=== PATIENT | female | born 1960 | race African-American/Black ===

== ENCOUNTER 2018-12-26 10:40 | Emergency (ER) | payer OTHER ==
[~2018-12-26] VITALS: Ht 180.3 cm; Wt 132.9 kg
[~2018-12-26 10:40] MED LIST: ALLOPURINOL 10100 M1 PO; BACTRIM DS TAB1 EACH PO; CLONIDINE0.1 PO; FLEXERIL PO; FLONASE 0.05%50 MCG NASAL; HYDROCHLOROTHIA50 MG PO; HYDROCODON-ACE1 EAC2 PO; IBUPROFEN 600600 M1 PO; INDOMETHACIN 2525 MG PO; LISINOPRIL20 MG PO; MACROBID 100 M100 M1 PO; NORCO 5-325 TA1 EACH PO; NORVASC 2.5 MG2.5 M1 PO; PERCOCET 5-3251 EACH PO; PREDNISONE 10 M10 M1 PO; PREDNISONE 20 M20 MG PO; PRINIVIL20 MG PO; PYRIDIUM200 MG PO; ZOLOFT 50 MG TA50 M1
[2018-12-26] MEDS ORDERED: OXYCONTIN20 M1 PO (11:10)
[2018-12-26 11:41] LABS: CALCIUM 9.2 mg/dL (8.5-10.1); CREATININE 1.1 mg/dL (0.6-1.0); POTASSIUM 4.5 mmol/L (3.5-5.1)
[2018-12-26 11:45] LABS: URIC ACID* 8.4 mg/dL (2.6-7.2)
[2018-12-26] MEDS ORDERED: NORCO 5-325 TA1 EAC1 PO (11:55)
[2018-12-26] MEDS ORDERED: NORFLEX100 MG PO (11:55)
[2018-12-26] MEDS ORDERED: COLCHICINE0.6 MG PO (11:55)
[2018-12-26 12:15] VITALS: BP 166/76
== END 2018-12-26 12:16 | disposition home or self-care (01) ==
LOC: ER 10:40
PROVIDERS: Physician Assistant
DX: M76.32 Iliotibial band syndrome, left leg (principal); M10.9 Gout, unspecified; I10 Essential (primary) hypertension; M06.9 Rheumatoid arthritis, unspecified; Z86.2 Personal history of diseases of the blood and blood-forming organs and certain disorders involving the immune mechanism

== ENCOUNTER 2020-08-18 00:28 | Emergency (ER) | payer BC ==
[~2020-08-18] VITALS: Ht 180.3 cm; Wt 140.6 kg
[~2020-08-18 00:28] MED LIST changes: +COLCHICINE0.6 MG PO; +NORCO 5-325 TA1 EAC1 PO; +NORFLEX100 MG PO; +OXYCONTIN20 M1 PO
[2020-08-18] MEDS ORDERED: NORCO5 PO (01:35)
[2020-08-18 01:46] VITALS: BP 189/79
== END 2020-08-18 01:46 | disposition home or self-care (01) ==
LOC: ER 00:28
DX: M10.9 Gout, unspecified (principal); M25.572 Pain in left ankle and joints of left foot; I10 Essential (primary) hypertension; M06.9 Rheumatoid arthritis, unspecified; Z79.899 Other long term (current) drug therapy

== ENCOUNTER 2021-03-12 07:01 | Emergency (ER) | payer BC ==
[~2021-03-12] VITALS: Ht 180.3 cm; Wt 136.1 kg
[~2021-03-12 07:01] MED LIST changes: +NORCO5 PO
[2021-03-12 07:49] LABS: ABSOLUTE NEUTROPHILS 3.1 thou/uL (1.4-8.2); BASOPHILS 1.7 % (0.0-2.0); EOSINOPHILS 2.6 % (0.0-3.0); HEMATOCRIT 36.6 % (37.0-47.0); HEMOGLOBIN 11.6 gm/dL (12.0-15.0); LYMPHOCYTES 40.7 % (24.0-44.0); MCHC 31.8 g/dL (28.0-37.0); MCV 78.6 fL (80.0-100.0); MONOCYTES 7.7 % (1.0-8.0); PLATELET COUNT 302 thou/uL (150-400); POLYS 47.3 % (36.0-66.0); RBC 4.65 mil/uL (4.20-5.00); RDW 16.1 % (10.5-14.5); WBC 6.5 thou/uL (4.0-11.0)
[2021-03-12 07:52] LABS: CALCIUM 9.3 mg/dL (8.5-10.1); CREATININE 1.1 mg/dL (0.6-1.0)
[2021-03-12 08:02] LABS: ALBUMIN 3.5 g/dL (3.4-5.0); TOTAL BILIRUBIN 0.2 mg/dL (0.2-1.0); TOTAL PROTEIN 7.8 g/dL (6.4-8.2)
[2021-03-12] MEDS ORDERED: MEDROLDOSEPACK PO (11:14)
[2021-03-12] MEDS ORDERED: IBUPROFEN 800800 MG PO (11:14)
[2021-03-12] MEDS ORDERED: LISINOPRIL20 MG PO (11:17)
[2021-03-12] MEDS ORDERED: HYDROCHLOROTHIA50 MG PO (11:17)
[2021-03-12 11:35] VITALS: BP 189/91
--- NOTE | 2021-03-14 07:34 | EKG ---
[address] [address] ELECTROCARDIOGRAM REPORT Name: DANYA DASILVA Room #: [facility]#: [id number] Admission: 03/12/21 Attend Phys: Discharge: 03/12/21 Date of : 62 Report #: [id number] [facility] ED Test Date: 2021-03-12 Test Time: 07:09:13 Pat Name: DANYA DASILVA Department: Room: Gender: F Social Media Analyst: MARK : 1960 Requested By: Anam Kim Order Number: [id number] MD: Jamie Haynes Measurements Intervals [place] Rate: 83 P: -4 DE: 186 QRS: -10 QRSD: 90 T: 52 QT: 376 QTc: 442 Interpretive Statements Sinus rhythm Anterior infarct, old Baseline wander in lead(s) V1,V2 Compared to ECG 03/21/2017 14:59:31 Myocardial infarct finding now present Atrial abnormality no longer present Electronically Signed On 03-14-2021 7:34:43 HAND TIER by Jamie Haynes [email or web address] <ELECTRONICALLY SIGNED> By: Jamie Haynes MD, [facility] 03/14/2134 8 8 Jamie Haynes MD, FAC /EPI
== END 2021-03-12 11:30 | disposition home or self-care (01) ==
LOC: ER 07:01
PROVIDERS: Emergency Medicine
DX: M25.512 Pain in left shoulder (principal); M25.511 Pain in right shoulder; M10.9 Gout, unspecified; I10 Essential (primary) hypertension; Z79.891 Long term (current) use of opiate analgesic; Z79.1 Long term (current) use of non-steroidal anti-inflammatories (NSAID); Z79.899 Other long term (current) drug therapy